=== PATIENT | male | born 1960 | race Two or more races ===

== ENCOUNTER 2020-07-19 12:57 | Emergency (ER) | payer OTHER ==
[~2020-07-19] VITALS: Ht 175.3 cm; Wt 83.0 kg
[2020-07-19] MEDS ORDERED: ATIVAN2 M1 (13:23)
[2020-07-19] MEDS ORDERED: SYNTHROID50 MCG (13:23)
== END 2020-07-19 18:20 | disposition home or self-care (01) ==
LOC: ER 12:57
DX: K57.32 Diverticulitis of large intestine without perforation or abscess without bleeding (principal); N20.0 Calculus of kidney; Z03.818 Encounter for observation for suspected exposure to other biological agents ruled out; R10.84 Generalized abdominal pain